=== PATIENT | male | born 1955 | race Hispanic/Latino ===

== ENCOUNTER 2019-12-01 12:33 | Emergency (ER) | payer BC ==
[2019-12-01 14:03] LABS: Basophils # (Auto) 0.1 K/mm3 (0.0-0.1); Basophils % (Auto) 0.5 % (0.0-1.8); Eosinophils % (Auto) 0.2 % (0.0-4.3); Hematocrit 44.8 % (35.5-45.6); Hemoglobin 15.2 gm/dl (11.8-15.2); Lymphocytes # (Auto) 1.1 K/mm3 (1.2-5.4); Lymphocytes % (Auto) 5.6 % (13.4-35.0); Mean Corpuscular HGB Conc 34 % (32-34); Mean Corpuscular Volume 91 fl (84-94); Monocytes # (Auto) 1.3 K/mm3 (0.0-0.8); Monocytes % (Auto) 6.9 % (0.0-7.3); Platelet Count 181 K/mm3 (140-440); Red Blood Count 4.91 M/mm3 (3.65-5.03)
[2019-12-01 14:16] LABS: BUN/Creatinine Ratio 24; Blood Urea Nitrogen 19 mg/dL (9-20); Calcium 9.1 mg/dL (8.4-10.2); Hemolysis Index 10
--- NOTE | 2019-12-01 15:23 | Emergency Department Report ---
ED General Adult HPI - General Chief complaint: Urogenital-Male Stated complaint: CANT URINATE Time Seen by Provider: 12/01/19 13:21 Source: patient Mode of arrival: Ambulatory Limitations: No Limitations - History of Present Illness Initial comments: This is a 54-year-old man who states that he is driving from [place] to [place] on vacation. He states he lives in [place] and has a urologist down there. He states 3 days ago he had what sounds like a cystometrogram by his urologist in [place]. He is a poor historian. He states he has known pr ostatic hypertrophy. He states he takes oxybutynin prescribed by his urologist. He denies fever or chills. He presented with urgency and inability to urinate more than a very small quantity. He is questioning as to whether or not he has an infection. -: Gradual, days(s) Location: abdomen (Lower abdominal discomfort with inability to void adequately) Radiation: non-radiation Quality: aching Consistency: constant Improves with: none Worsens with: none Associated Symptoms: denies other symptoms - Related Data Previous Rx's Medication Instructions Recorded Last Taken Type cefUROXime [Ceftin] 250 mg PO Q12H #20 tablet 12/01/19 Unknown Rx Allergies Allergy/AdvReac Type Severity Reaction Status Date / Time No Known Allergies Allergy Verified 12/01/19 12:39 ED Review of Systems ROS: Stated complaint: CANT URINATE Other details as noted in HPI Constitutional: denies: chills, fever Eyes: denies: eye pain, vision change ENT: denies: ear pain, throat pain Respiratory: denies: cough, shortness of breath, wheezing Cardiovascular: denies: chest pain, palpitations Endocrine: no symptoms reported Gastrointestinal: denies: abdominal pain, nausea Genitourinary: denies: urgency, dysuria Musculoskeletal: denies: back pain, arthralgia Skin: denies: rash, lesions Neurological: denies: headache, weakness, paresthesias Psychiatric: denies: anxiety, depression Hematological/Lymphatic: denies: easy bleeding, easy bruising ED Past Medical Hx - Past Medical History Previous Medical History?: Yes Additional medical history: enlarged prostate - Surgical History Past Surgical History?: No - Social History Smoking Status: Never Smoker Substance Use Type: None - Medications Home Medications: Home Medications Medication Instructions Recorded Confirmed Last Taken Type cefUROXime [Ceftin] 250 mg PO Q12H #20 tablet 12/01/19 Unknown Rx ED Physical Exam - General Limitations: No Limitations General appearance: alert, in no apparent distress - Head Head exam: Present: atraumatic, normocephalic - Eye Eye exam: Present: normal appearance. Absent: scleral icterus - ENT ENT exam: Present: mucous membranes moist - Neck Neck exam: Present: normal inspection - Respiratory Respiratory exam: Present: normal lung sounds bilaterally. Absent: respiratory distress - Cardiovascular Cardiovascular Exam: Present: regular rate, normal rhythm. Absent: systolic murmur, diastolic murmur, rubs, gallop - GI/Abdominal GI/Abdominal exam: Present: soft, normal bowel sounds. Absent: distended, tenderness, guarding, rebound, rigid - Rectal Rectal exam: Present: deferred - exam: Present: other (Gary placed. Urine somewhat cloudy.) - Extremities Exam Extremities exam: Present: normal inspection - Back Exam Back exam: Present: normal inspection - Neurological Exam Neurological exam: Present: alert, oriented X3 - Psychiatric Psychiatric exam: Present: normal affect, normal mood - Skin Skin exam: Present: warm, dry, intact, normal color. Absent: rash ED Course Vital Signs 12/01/19 12/01/19 12:41 15:44 Temperature 98.2 F Pulse Rate 111 H Respiratory 18 18 Rate Blood Pressure 166/98 O2 Sat by Pulse 94 100 Oximetry - Reevaluation(s) Reevaluation #1: Patient given IV fluids and ceftriaxone. Urine culture. Outpatient treatment is anticipated. We will continue him on Ceftin. Stressed importance to follow- up on the urine culture result. 12/01/19 17:01 Reevaluation #2: Patient looks well. Have emphasized the plan. Antibiotics and fluids are yet pending. Discharge thereafter. 12/01/19 17:04 ED Medical Decision Making - Lab Data Result diagrams: 12/01/19 13:43 12/01/19 13:43 Laboratory Results - last 24 hr 12/01/19 12/01/19 13:43 13:43 WBC 19.2 H RBC 4.91 Hgb 15.2 Hct 44.8 MCV 91 MCH 31 MCHC 34 RDW 13.0 L Plt Count 181 Lymph % (Auto) 5.6 L [place] % (Auto) 6.9 Eos % (Auto) 0.2 Baso % (Auto) 0.5 Lymph # 1.1 L [place] # 1.3 H Eos # 0.0 Baso # 0.1 Seg Neutrophils % 86.8 H Seg Neutrophils # 16.6 H Sodium 136 L Potassium 3.7 Chloride 101.9 Carbon Dioxide 20 L Anion Gap 18 BUN 19 Creatinine 0.8 Estimated GFR > 60 BUN/Creatinine Ratio 24 Glucose 111 H Calcium 9.1 Critical care attestation.: If time is entered above; I have spent that time in minutes in the direct care of this critically ill patient, excluding procedure time. ED Disposition Clinical Impression: Bladder outlet obstruction Acute cystitis Qualifiers: Hematuria presence: without hematuria Qualified Code(s): N30.00 - Acute cystitis without hematuria Disposition: TO HOME OR SELFCARE Is pt being admited?: No Does the pt Need Aspirin: No Condition: Stable Instructions: Urinary Tract Infection in Men (ED), Urinary Leg Bag (GEN), Gary Catheter Placement and Care (ED) Additional Instructions: Follow-up with urologist either in [place] or [place]. Urine culture result in 2 to 3 days. Rx Ceftin. Seek emergency care should you have fever chills vomiting or any acute change. Prescriptions: cefUROXime [Ceftin] 250 mg PO Q12H #20 tablet Referrals: LILIA TATE MD [Primary Care Provider] - 3-5 Days Time of Disposition: 17:06
[2019-12-01 16:06] LABS: Bilirubin,Urine NEG (Negative); Blood,Urine MOD (Negative); Color,Urine Yellow (Yellow); Mucus,Urine 2+ /HPF; Urobilinogen,Urine < 2.0 mg/dL (<2.0)
[2019-12-01] MEDS ORDERED: cefTRIAXone/NS 1 GM/50 ML 1 GM/50 ML BAG IV ONE (16:19)
[2019-12-01] MEDS ORDERED: SODIUM CHLORIDE 0.9% 1000 ML 1,000 ML IV ONE (16:19)
[2019-12-01 18:26] VITALS: BP 144/86
== END 2019-12-01 18:22 | disposition home or self-care (01) ==
LOC: ED 12:33
DX: N30.00 Acute cystitis without hematuria (principal); N32.0 Bladder-neck obstruction; Z79.899 Other long term (current) drug therapy
CPT/HCPCS: 36415; 51702; 80048; 81001; 85025; 96365; 99283; J0696; J7030